=== PATIENT | female | born 1980 | race Two or more races ===

== ENCOUNTER 2017-03-21 13:44 | Emergency (ER) | payer BC ==
[~2017-03-21] VITALS: Ht 154.9 cm; Wt 60.0 kg
[2017-03-21 15:19] LABS: BLOOD UREA NITROGEN 9 mg/dL (7-18)
[2017-03-21 16:58] LABS: PATH.CAST-FLAG NOT PRESENT; SPERM-FLAG NOT PRESENT; SRC-FLAG NOT PRESENT; XTAL-FLAG NOT PRESENT; YLC-FLAG NOT PRESENT
[2017-03-21 18:06] VITALS: BP 115/73
== END 2017-03-21 18:30 | disposition home or self-care (01) ==
LOC: ED 18:25
DX: O00.10 Tubal pregnancy without intrauterine pregnancy (principal); R10.31 Right lower quadrant pain; Z3A.08 8 weeks gestation of pregnancy
CPT/HCPCS: 36415; 76801; 80048; 81001; 82040; 84702; 85025; 86901